=== PATIENT | female | born 1985 | race Caucasian/White ===

== ENCOUNTER 2019-04-08 20:06 | Emergency (ER) | payer OTHER ==
[~2019-04-08] VITALS: Ht 154.9 cm; Wt 68.0 kg
[2019-04-08] MEDS ORDERED: FORTAMET1000 MG (20:23)
[2019-04-08] MEDS ORDERED: SYNTHROID50 MCG (20:25)
[2019-04-08] MEDS ORDERED: CLONAZEPAM1 M1 (20:25)
[2019-04-08] MEDS ORDERED: PRENA1 CHEW TA1.4 MG (20:25)
[2019-04-08] MEDS ORDERED: PROZAC20 MG (20:25)
== END 2019-04-08 23:18 | disposition home or self-care (01) ==
LOC: ER 20:06
DX: O20.8 Other hemorrhage in early pregnancy (principal)

== ENCOUNTER 2019-08-18 10:08 | Emergency (ER) | payer OTHER ==
[~2019-08-18] VITALS: Ht 154.9 cm; Wt 69.9 kg
[~2019-08-18 10:08] MED LIST: CLONAZEPAM1 M1; FORTAMET1000 MG; PRENA1 CHEW TA1.4 MG; PROZAC20 MG; SYNTHROID50 MCG
== END 2019-08-18 19:09 | disposition home or self-care (01) ==
LOC: ER 10:08
DX: O90.89 Other complications of the puerperium, not elsewhere classified (principal)

== ENCOUNTER 2019-09-20 11:47 | Emergency (ER) | payer OTHER ==
[~2019-09-20] VITALS: Ht 154.9 cm; Wt 59.9 kg
[2019-09-20] MEDS ORDERED: DOXYCYCLINE HY100 M2 PO (16:30)
[2019-09-20] MEDS ORDERED: CLINDAMYCIN HC300 MG PO (16:30)
[2019-09-20] MEDS ORDERED: INTESTINEX680 M1 PO (16:30)
== END 2019-09-20 16:46 | disposition home or self-care (01) ==
LOC: ER 11:47
DX: L03.115 Cellulitis of right lower limb (principal)

== ENCOUNTER 2019-09-28 12:06 | Emergency (ER) | payer OTHER ==
[~2019-09-28] VITALS: Ht 154.9 cm; Wt 0.5 kg
[~2019-09-28 12:06] MED LIST changes: +CLINDAMYCIN HC300 MG PO; +DOXYCYCLINE HY100 M2 PO; +INTESTINEX680 M1 PO
== END 2019-09-28 19:40 | disposition home or self-care (01) ==
LOC: ER 12:06
DX: R60.0 Localized edema (principal); L52 Erythema nodosum; Z20.828 Contact with and (suspected) exposure to other viral communicable diseases

== ENCOUNTER 2020-10-21 10:34 | Emergency (ER) | payer OTHER ==
[~2020-10-21] VITALS: Ht 154.9 cm; Wt 67.1 kg
[2020-10-21] MEDS ORDERED: PRENATAL + DHA1 EAC1 (10:52)
[2020-10-21] MEDS ORDERED: SYNTHROID75 MCG PO (14:06)
== END 2020-10-21 14:27 ==
LOC: ER 10:34
DX: O20.0 Threatened abortion (principal); Z3A.01 Less than 8 weeks gestation of pregnancy; O36.80X0 Pregnancy with inconclusive fetal viability, not applicable or unspecified; O26.891 Other specified pregnancy related conditions, first trimester; O26.851 Spotting complicating pregnancy, first trimester; O24.311 Unspecified pre-existing diabetes mellitus in pregnancy, first trimester; Z79.4 Long term (current) use of insulin

== ENCOUNTER 2021-03-03 11:21 | Emergency (ER) | payer OTHER ==
[~2021-03-03] VITALS: Ht 154.9 cm; Wt 68.0 kg
[~2021-03-03 11:21] MED LIST changes: +PRENATAL + DHA1 EAC1; +SYNTHROID75 MCG PO
[2021-03-03] MEDS ORDERED: FOLIC ACID0.8 M1 (11:48)
[2021-03-03] MEDS ORDERED: ENDOMETRIN100 MG (11:49)
[2021-03-03] MEDS ORDERED: BUDESONIDE0.5 MG/2 M IH (15:50)
[2021-03-03] MEDS ORDERED: IPRAT-ALBUT 0.5-3 ML IH (15:50)
[2021-03-03] MEDS ORDERED: MUCINEX DM ER1 EAC1 PO (15:50)
== END 2021-03-03 16:36 ==
LOC: ER 11:21
DX: O99.512 Diseases of the respiratory system complicating pregnancy, second trimester (principal); Z3A.26 26 weeks gestation of pregnancy; J06.9 Acute upper respiratory infection, unspecified; R10.2 Pelvic and perineal pain; B34.8 Other viral infections of unspecified site; Z88.0 Allergy status to penicillin; Z88.6 Allergy status to analgesic agent

== ENCOUNTER 2022-05-04 19:00 | Emergency (ER) | payer OTHER ==
[~2022-05-04] VITALS: Ht 154.9 cm; Wt 63.5 kg
[~2022-05-04 19:00] MED LIST changes: +BUDESONIDE0.5 MG/2 M IH; +ENDOMETRIN100 MG; +FOLIC ACID0.8 M1; +IPRAT-ALBUT 0.5-3 ML IH; +MUCINEX DM ER1 EAC1 PO
[2022-05-05] MEDS ORDERED: ONDANSETRON ODT4 MG PO (03:22)
[2022-05-05] MEDS ORDERED: CIPRO500 MG PO (03:22)
== END 2022-05-05 03:26 ==
LOC: ER 19:00
DX: N39.0 Urinary tract infection, site not specified (principal); E11.9 Type 2 diabetes mellitus without complications; Z79.84 Long term (current) use of oral hypoglycemic drugs; I10 Essential (primary) hypertension; Z88.6 Allergy status to analgesic agent; Z88.0 Allergy status to penicillin; Z88.2 Allergy status to sulfonamides

== ENCOUNTER 2022-06-15 12:09 | Emergency (ER) | payer OTHER ==
[~2022-06-15] VITALS: Ht 154.9 cm; Wt 60.8 kg
[~2022-06-15 12:09] MED LIST changes: +CIPRO500 MG PO; +ONDANSETRON ODT4 MG PO
== END 2022-06-15 18:22 | disposition home or self-care (01) ==
LOC: ER 12:09
DX: A08.8 Other specified intestinal infections (principal); R00.2 Palpitations; R07.89 Other chest pain; Z88.0 Allergy status to penicillin; Z88.2 Allergy status to sulfonamides; Z88.6 Allergy status to analgesic agent; Z91.018 Allergy to other foods

== ENCOUNTER 2022-10-11 09:29 | Emergency (ER) | payer OTHER ==
[~2022-10-11] VITALS: Ht 154.9 cm; Wt 63.5 kg
== END 2022-10-11 12:27 | disposition home or self-care (01) ==
LOC: ER 09:29
PROVIDERS: Emergency Medicine
DX: B34.9 Viral infection, unspecified (principal); Z20.822 Contact with and (suspected) exposure to COVID-19; Z88.0 Allergy status to penicillin; Z88.2 Allergy status to sulfonamides; Z91.048 Other nonmedicinal substance allergy status

== ENCOUNTER 2022-12-25 08:10 | Emergency (ER) | payer OTHER ==
[~2022-12-25] VITALS: Ht 154.9 cm; Wt 67.1 kg
[2022-12-25] MEDS ORDERED: FOLIC ACID20 MG (08:20)
[2022-12-25] MEDS ORDERED: PRENATABS FA T1 EACH (08:21)
[2022-12-25 11:05] LABS: URINE APPEARANCE Clear; URINE BILIRRUBIN Negative (NEGATIVE); URINE BLOOD Negative; URINE COLOR Yellow; URINE GLUCOSE Negative (NEGATIVE); URINE LEUKOCYTE Negative; URINE NITRATE Negative; URINE PROTEIN Negative (NEGATIVE); URINE UROBILINOGEN 0.2 E.U./dl
[2022-12-25 11:06] LABS: URINE BACTERIA 294.7 uL (0.0-1933); URINE EPITHELIAL CELLS 19.4 uL (0.0-38.8); URINE RBC 7.1 uL (0.0-20.8); URINE WBC 7.5 uL (0.0-23.2)
[2022-12-25 11:11] LABS: HEMATOCRIT 32.9 % (36.0-45.00); HEMOGLOBIN 10.9 g/dL (12.0-15.00); MEAN CELL VOLUME 89.1 fL (80.00-100.00); MEAN CORPUSCULAR HEMOGLOBIN 29.5 pg (27.00-32.0); MEAN CORPUSCULAR HGB CONC 33.1 g/dl (32.0-36.0); PLATELET COUNT 327 K/uL (150-450); RED BLOOD COUNT 3.69 M/uL (4.00-6.00)
[2022-12-25 11:45] LABS: CALCIUM 9.4 mg/dL (8.5-10.1); CREATININE SERUM 0.52 mg/dL (0.55-1.02); GFR 131.97; POTASSIUM 3.79 mEq/L (3.5-5.1)
== END 2022-12-25 13:21 ==
LOC: ER 08:10
PROVIDERS: General Practice
DX: B34.8 Other viral infections of unspecified site (principal); Z20.822 Contact with and (suspected) exposure to COVID-19

== ENCOUNTER 2023-01-16 01:23 | Emergency (ER) | payer OTHER ==
[~2023-01-16] VITALS: Ht 154.9 cm; Wt 67.1 kg
[~2023-01-16 01:23] MED LIST changes: +FOLIC ACID20 MG; +PRENATABS FA T1 EACH
[2023-01-16] MEDS ORDERED: CLEOCIN HCL300 MG PO (03:08)
[2023-01-16] MEDS ORDERED: DOLOGEN CAPLET1 EACH PO (03:08)
== END 2023-01-16 03:24 | disposition home or self-care (01) ==
LOC: ER 01:23
DX: K08.89 Other specified disorders of teeth and supporting structures (principal); Z3A.15 15 weeks gestation of pregnancy; Z88.0 Allergy status to penicillin; Z88.2 Allergy status to sulfonamides; Z88.6 Allergy status to analgesic agent; Z91.018 Allergy to other foods

== ENCOUNTER 2023-01-27 15:50 | Emergency (ER) | payer OTHER ==
[~2023-01-27] VITALS: Ht 154.9 cm; Wt 67.1 kg
[~2023-01-27 15:50] MED LIST changes: +CLEOCIN HCL300 MG PO; +DOLOGEN CAPLET1 EACH PO
[2023-01-27 17:36] LABS: HEMATOCRIT 30.6 % (36.0-45.00); HEMOGLOBIN 10.3 g/dL (12.0-15.00); MEAN CELL VOLUME 90.5 fL (80.00-100.00); MEAN CORPUSCULAR HEMOGLOBIN 30.4 pg (27.00-32.0); MEAN CORPUSCULAR HGB CONC 33.6 g/dl (32.0-36.0); PLATELET COUNT 307 K/uL (150-450); RED BLOOD COUNT 3.38 M/uL (4.00-6.00); RED CELL DISTRIBUTION WIDTH 14.9 % (11.5-14.5)
[2023-01-27 17:37] LABS: PH,URINE 7.5 (5.0-8.0); URINE APPEARANCE Clear; URINE BILIRRUBIN Negative (NEGATIVE); URINE BLOOD Negative; URINE COLOR Yellow; URINE GLUCOSE Negative (NEGATIVE); URINE LEUKOCYTE Moderate; URINE NITRATE Negative; URINE PROTEIN Negative (NEGATIVE); URINE UROBILINOGEN 0.2 E.U./dl
[2023-01-27 17:41] LABS: URINE BACTERIA 1202.9 uL (0.0-1933); URINE EPITHELIAL CELLS 18.3 uL (0.0-38.8); URINE RBC 2.4 uL (0.0-20.8)
[2023-01-27] MEDS ORDERED: MACRODANTIN100 M1 PO (17:57)
[2023-01-27] MEDS ORDERED: ONDANSETRON ODT8 MG PO (17:57)
[2023-01-27] MEDS ORDERED: FLORAVANCE CAP1 EACH PO (17:57)
== END 2023-01-27 18:21 | disposition home or self-care (01) ==
LOC: ER 15:50
PROVIDERS: General Practice
DX: O23.42 Unspecified infection of urinary tract in pregnancy, second trimester (principal); N39.0 Urinary tract infection, site not specified; Z3A.16 16 weeks gestation of pregnancy; Z88.6 Allergy status to analgesic agent; Z88.0 Allergy status to penicillin; Z88.2 Allergy status to sulfonamides; Z91.018 Allergy to other foods

== ENCOUNTER 2023-02-27 10:20 | Emergency (ER) | payer OTHER ==
[~2023-02-27] VITALS: Ht 154.9 cm; Wt 68.0 kg
[~2023-02-27 10:20] MED LIST changes: +FLORAVANCE CAP1 EACH PO; +MACRODANTIN100 M1 PO; +ONDANSETRON ODT8 MG PO
== END 2023-02-27 13:08 | disposition home or self-care (01) ==
LOC: ER 10:21
DX: O99.891 Other specified diseases and conditions complicating pregnancy (principal); Z3A.21 21 weeks gestation of pregnancy; Z88.2 Allergy status to sulfonamides; Z88.0 Allergy status to penicillin; Z91.012 Allergy to eggs; J00 Acute nasopharyngitis [common cold]; Z88.6 Allergy status to analgesic agent

== ENCOUNTER → 2023-03-13 | Emergency (ER) | payer OTHER ==
[~2023-03-13] VITALS: Ht 154.9 cm; Wt 68.9 kg
[~2023-03-13] MED LIST changes: +ACETAMINOPHEN 500 MG GEL..CAP PO STA
[2023-03-13 13:34] LABS: HEMATOCRIT 28.9 % (36.0-45.00); HEMOGLOBIN 9.7 g/dL (12.0-15.00); MEAN CELL VOLUME 89.7 fL (80.00-100.00); MEAN CORPUSCULAR HEMOGLOBIN 30.1 pg (27.00-32.0); MEAN CORPUSCULAR HGB CONC 33.6 g/dl (32.0-36.0); PLATELET COUNT 271 K/uL (150-450); RED BLOOD COUNT 3.22 M/uL (4.00-6.00); RED CELL DISTRIBUTION WIDTH 14.7 % (11.5-14.5)
[2023-03-13 13:44] LABS: ERYTHROCYTE SEDIMENTATION RATE 27 mm/hr
[2023-03-13 13:53] LABS: URINE APPEARANCE Clear; URINE BILIRRUBIN Negative (NEGATIVE); URINE BLOOD Negative; URINE COLOR Yellow; URINE GLUCOSE Negative (NEGATIVE); URINE LEUKOCYTE Small; URINE NITRATE Negative; URINE PROTEIN Negative (NEGATIVE); URINE UROBILINOGEN 0.2 E.U./dl
[2023-03-13 14:03] LABS: URINE BACTERIA 7.5 uL (0.0-1933); URINE WBC 44.7 uL (0.0-23.2)
[2023-03-13 14:07] LABS: CALCIUM 8.6 mg/dL (8.5-10.1); CREATININE SERUM 0.49 mg/dL (0.55-1.02); GFR 141.34; POTASSIUM 3.68 mEq/L (3.5-5.1)
[2023-03-13 14:08] LABS: URINE RBC 0.5 uL (0.0-20.8)
== END | disposition home or self-care (01) ==
LOC: ER 10:26
PROVIDERS: General Practice
DX: O98.512 Other viral diseases complicating pregnancy, second trimester (principal); B34.9 Viral infection, unspecified; Z3A.21 21 weeks gestation of pregnancy; R42 Dizziness and giddiness; Z88.0 Allergy status to penicillin; Z88.2 Allergy status to sulfonamides; Z91.018 Allergy to other foods; Z20.822 Contact with and (suspected) exposure to COVID-19

== ENCOUNTER 2023-03-27 18:18 | Emergency (ER) | payer OTHER ==
[~2023-03-27] VITALS: Ht 154.9 cm; Wt 71.7 kg
[~2023-03-27 18:18] MED LIST changes: -ACETAMINOPHEN 500 MG GEL..CAP PO STA
[2023-03-27] MEDS ORDERED: GLUMETZA1000 MG PO (19:02)
[2023-03-27] MEDS ORDERED: PROZAC40 MG PO (19:02)
[2023-03-27] MEDS ORDERED: SYNTHROID50 MCG PO (19:03)
[2023-03-27] MEDS ORDERED: CLINDAMYCIN PHOSPHATE 150 MG/ML (600mg) IM STA (20:53)
[2023-03-27] MEDS ORDERED: ACETAMINOPHEN 500 MG GEL..CAP PO STA (20:54)
== END 2023-03-27 21:18 | disposition home or self-care (01) ==
LOC: ER 18:18
DX: K03.81 Cracked tooth (principal); K08.89 Other specified disorders of teeth and supporting structures; Z88.0 Allergy status to penicillin; Z88.2 Allergy status to sulfonamides; Z88.8 Allergy status to other drugs, medicaments and biological substances; Z91.018 Allergy to other foods

== ENCOUNTER 2023-04-05 21:52 | Outpatient (CLI) | payer OTHER ==
[~2023-04-05] VITALS: Ht 154.9 cm; Wt 68.9 kg
[~2023-04-05 21:52] MED LIST changes: +GLUMETZA1000 MG PO; +PROZAC40 MG PO; +SYNTHROID50 MCG PO
[2023-04-05 23:31] LABS: PH,URINE 6.5 (5.0-8.0); URINE APPEARANCE Clear; URINE BILIRRUBIN Negative (NEGATIVE); URINE BLOOD Negative; URINE COLOR Yellow; URINE GLUCOSE Negative (NEGATIVE); URINE LEUKOCYTE Moderate; URINE NITRATE Negative; URINE PROTEIN Negative (NEGATIVE); URINE UROBILINOGEN 0.2 E.U./dl
[2023-04-05 23:34] LABS: URINE BACTERIA 799.9 uL (0.0-1933); URINE EPITHELIAL CELLS 15.2 uL (0.0-38.8); URINE WBC 31.8 uL (0.0-23.2)
[2023-04-05 23:37] LABS: HEMATOCRIT 25.7 % (36.0-45.00); MEAN CELL VOLUME 90.7 fL (80.00-100.00); MEAN CORPUSCULAR HGB CONC 33.6 g/dl (32.0-36.0); PLATELET COUNT 270 K/uL (150-450); RED BLOOD COUNT 2.83 M/uL (4.00-6.00); RED CELL DISTRIBUTION WIDTH 15.3 % (11.5-14.5)
[2023-04-05 23:39] LABS: MEAN CORPUSCULAR HEMOGLOBIN 30.3 pg (27.00-32.0)
[2023-04-05 23:40] LABS: HEMOGLOBIN 8.6 g/dL (12.0-15.00); URINE RBC 0.4 uL (0.0-20.8)
[2023-04-05] MEDS ORDERED: ACETAMINOPHEN 500 MG GEL..CAP PO ONE (23:45)
[2023-04-05] MEDS ORDERED: PROMETHAZINE HCL 25 MG/ML AMPUL IV ONE (23:45)
[2023-04-05 23:57] LABS: ALBUMIN 2.7 gm/dL (3.4-5.0); BILIRUBIN TOTAL 0.22 mg/dL (0.3-1.2); CALCIUM 8.8 mg/dL (8.5-10.1); GFR 152.03; GLOBULINA 3.4 G/DL (2.4-3.5); POTASSIUM 4.14 mEq/L (3.5-5.1); TOTAL PROTEIN 6.1 gm/dL (6.4-8.2)
[2023-04-06 00:03] LABS: CREATININE SERUM 0.46 mg/dL (0.55-1.02)
[2023-04-06] MEDS ORDERED: LEVOTHYROXINE SODIUM 50 MCG TABLET PO SCH (06:00)
[2023-04-06] MEDS ORDERED: SOD FERRIC GLUC COMPLX/SUCROSE 125 MG in 0.9 % SODIUM CHLORIDE 100 ML IV SCH (11:37)
[2023-04-06] MEDS ORDERED: SOD FERRIC GLUC COMPLX/SUCROSE 62.5 MG/5 ML AMPUL IV ONE (11:54)
== END 2023-04-06 14:23 | disposition home or self-care (01) ==
LOC: OBS/DEL 21:52
PROVIDERS: ATTEND Obstetrics & Gynecology
DX: O26.852 Spotting complicating pregnancy, second trimester (principal); Z3A.25 25 weeks gestation of pregnancy; D64.9 Anemia, unspecified; O26.849 Uterine size-date discrepancy, unspecified trimester; O60.00 Preterm labor without delivery, unspecified trimester

== ENCOUNTER 2023-04-24 21:24 | Outpatient (CLI) | payer OTHER ==
[~2023-04-24 21:24] MED LIST changes: +CLONAZEPAM2 M1; +CLONAZEPAM2 MG PO; +ENDOMETRIN100 MG IM; +FLONASE16 GM NASAL; +FOLIC ACID0.4 MG; +FOLIC ACID20 MG PO; +FORTAMET1000 MG PO; +GLUMETZA1000 MG; +IRON325 MG IJ; +LEVO-T75 MCG PO; +METFORMIN HCL1000 M2 PO; +OSEL75CA PO; +PRENATAL CAPLE1 EAC1 PO; +PRENATAL VITAM1 EAC4 PO; +PROMETRIUM200 MG PO; +PROZAC20 MG PO; +SYNTHROID75 MCG
[2023-04-24] MEDS ORDERED: RINGERS SOLUTION,LACTATED 1,000 ML IV SCH (21:30)
[2023-04-24 21:46] LABS: HEMATOCRIT 28.3 % (36.0-45.00); HEMOGLOBIN 9.5 g/dL (12.0-15.00); MEAN CELL VOLUME 90.6 fL (80.00-100.00); MEAN CORPUSCULAR HEMOGLOBIN 30.4 pg (27.00-32.0); MEAN CORPUSCULAR HGB CONC 33.6 g/dl (32.0-36.0); PH,URINE 7.5 (5.0-8.0); PLATELET COUNT 265 K/uL (150-450); RED BLOOD COUNT 3.12 M/uL (4.00-6.00); RED CELL DISTRIBUTION WIDTH 17.5 % (11.5-14.5); URINE APPEARANCE Cloudy; URINE BILIRRUBIN Negative (NEGATIVE); URINE BLOOD Small; URINE COLOR Dark Yellow; URINE GLUCOSE Negative (NEGATIVE); URINE LEUKOCYTE Large; URINE NITRATE Negative; URINE PROTEIN Negative (NEGATIVE)
[2023-04-24 21:49] LABS: URINE BACTERIA 1048.1 uL (0.0-1933); URINE EPITHELIAL CELLS 7.8 uL (0.0-38.8); URINE RBC 72.2 uL (0.0-20.8); URINE WBC 2342.7 uL (0.0-23.2)
[2023-04-24] MEDS ORDERED: METFORMIN HCL1000 M2 PO (22:24)
[2023-04-24] MEDS ORDERED: DIPHENHYDRAMINE HCL 50 MG/ML VIAL 1ML IV PRN (23:15)
[2023-04-25] MEDS ORDERED: CEFAZOLIN SODIUM 1,000 MG VIAL IV SCH
[2023-04-25] MEDS ORDERED: LEVOTHYROXINE SODIUM 50 MCG TABLET PO SCH (06:00)
[2023-04-25] MEDS ORDERED: PATIENTS OWN MEDICATION (MEDICAMENTO EN PISO) PO SCH (09:00)
[2023-04-25] MEDS ORDERED: SOD FERRIC GLUC COMPLX/SUCROSE 125 MG in 0.9 % SODIUM CHLORIDE 100 ML IV SCH (11:14)
[2023-04-25] MEDS ORDERED: SOD FERRIC GLUC COMPLX/SUCROSE 62.5 MG/5 ML AMPUL IV ONE (15:13)
== END 2023-04-25 18:20 | disposition home or self-care (01) ==
LOC: OBS/DEL 21:24
PROVIDERS: Obstetrics & Gynecology; ATTEND Obstetrics & Gynecology
DX: O23.43 Unspecified infection of urinary tract in pregnancy, third trimester (principal); N39.0 Urinary tract infection, site not specified; Z3A.29 29 weeks gestation of pregnancy; D64.9 Anemia, unspecified; O26.849 Uterine size-date discrepancy, unspecified trimester; O36.8199 Decreased fetal movements, unspecified trimester, other fetus; O60.00 Preterm labor without delivery, unspecified trimester

== ENCOUNTER 2023-05-13 14:40 | Outpatient (CLI) | payer OTHER | END 2023-05-13 14:41 | disposition home or self-care (01) | LOC: PRENATAL 14:40 | PROVIDERS: ATTEND Obstetrics & Gynecology Maternal & Fetal Medicine | DX: O26.849 Uterine size-date discrepancy, unspecified trimester (principal); O36.8199 Decreased fetal movements, unspecified trimester, other fetus; O09.529 Supervision of elderly multigravida, unspecified trimester; O34.219 Maternal care for unspecified type scar from previous cesarean delivery; O24.319 Unspecified pre-existing diabetes mellitus in pregnancy, unspecified trimester; O99.019 Anemia complicating pregnancy, unspecified trimester; Z3A.31 31 weeks gestation of pregnancy ==

== ENCOUNTER 2023-08-09 19:19 | Emergency (ER) | payer OTHER ==
[~2023-08-09] VITALS: Ht 154.9 cm; Wt 63.5 kg
[~2023-08-09 19:19] MED LIST changes: +CLONAZEPAM2 MG; +VITATRUE COMBO1 EACH
[2023-08-09] MEDS ORDERED: LEVOXYL50 MCG PO (19:35)
[2023-08-09] MEDS ORDERED: DIPHENHYDRAMINE HCL 50 MG/ML VIAL 1ML IV STA (20:10)
[2023-08-09] MEDS ORDERED: MOMETASONE FURO15 G2 TOP (20:17)
[2023-08-09] MEDS ORDERED: XYZAL5 MG PO (20:17)
== END 2023-08-09 21:19 | disposition home or self-care (01) ==
LOC: ER 19:21
DX: R21 Rash and other nonspecific skin eruption (principal); M32.9 Systemic lupus erythematosus, unspecified; Z88.0 Allergy status to penicillin; Z91.014 Allergy to mammalian meats; Z91.018 Allergy to other foods

== ENCOUNTER 2023-08-11 19:29 | Emergency (ER) | payer OTHER ==
[~2023-08-11] VITALS: Ht 154.9 cm; Wt 63.5 kg
[~2023-08-11 19:29] MED LIST changes: +LEVOXYL50 MCG PO; +MOMETASONE FURO15 G2 TOP; +XYZAL5 MG PO
[2023-08-11] MEDS ORDERED: TRAMADOL HCL 50 MG TABLET PO STA (21:05)
== END 2023-08-11 23:44 | disposition home or self-care (01) ==
LOC: ER 19:30
DX: M54.2 Cervicalgia (principal); M25.512 Pain in left shoulder; R51.9 Headache, unspecified; W19.XXXA Unspecified fall, initial encounter; Z88.0 Allergy status to penicillin; Z91.018 Allergy to other foods

== ENCOUNTER 2023-08-17 14:31 | Emergency (ER) | payer OTHER ==
[~2023-08-17] VITALS: Ht 154.9 cm; Wt 63.5 kg
[2023-08-17] MEDS ORDERED: DIPHENHYDRAMINE HCL 50 MG/ML VIAL 1ML IM STA (17:04)
[2023-08-17] MEDS ORDERED: METHYLPREDNISOLONE SOD SUCC 125 MG VIAL IM STA (17:05)
[2023-08-17] MEDS ORDERED: METHYLPREDNISOLONE SOD SUCC 125 MG VIAL IV STA (17:05)
[2023-08-17] MEDS ORDERED: DIPHENHYDRAMINE HCL 50 MG/ML VIAL 1ML IV STA (17:05)
[2023-08-17] MEDS ORDERED: EPINEPHRINE HCL/PF 1 MG/ML AMPUL SUBCUTANEO STA (17:06)
[2023-08-17] MEDS ORDERED: FAMOtidine 10 MG/ML (4ML VIAL) IV PUSH STA (17:06)
== END 2023-08-17 18:37 | disposition home or self-care (01) ==
LOC: ER 14:32
DX: L50.9 Urticaria, unspecified (principal); Z88.0 Allergy status to penicillin; Z91.014 Allergy to mammalian meats; Z91.018 Allergy to other foods

== ENCOUNTER 2023-08-27 16:29 | Emergency (ER) | payer OTHER ==
[~2023-08-27] VITALS: Ht 154.9 cm; Wt 63.5 kg
[2023-08-27 18:48] LABS: HEMATOCRIT 37.5 % (36.0-45.00); HEMOGLOBIN 12.5 g/dL (12.0-15.00); MEAN CELL VOLUME 91.1 fL (80.00-100.00); MEAN CORPUSCULAR HEMOGLOBIN 30.2 pg (27.00-32.0); MEAN CORPUSCULAR HGB CONC 33.2 g/dl (32.0-36.0); PLATELET COUNT 384 K/uL (150-450); RED BLOOD COUNT 4.12 M/uL (4.00-6.00); RED CELL DISTRIBUTION WIDTH 15.4 % (11.5-14.5)
[2023-08-27 19:34] LABS: ALBUMIN 3.6 gm/dL (3.4-5.0); BILIRUBIN TOTAL 0.39 mg/dL (0.3-1.2); CREATININE SERUM 0.67 mg/dL (0.55-1.02); GFR 97.99; GLOBULINA 3.7 G/DL (2.4-3.5); POTASSIUM 4.35 mEq/L (3.5-5.1); TOTAL PROTEIN 7.3 gm/dL (6.4-8.2)
== END 2023-08-27 21:28 | disposition home or self-care (01) ==
LOC: ER 16:29
PROVIDERS: Emergency Medicine
DX: R07.9 Chest pain, unspecified (principal); L93.2 Other local lupus erythematosus; E03.8 Other specified hypothyroidism; Z88.2 Allergy status to sulfonamides; Z88.0 Allergy status to penicillin; Z91.011 Allergy to milk products; Z91.012 Allergy to eggs; Z88.6 Allergy status to analgesic agent; Z91.018 Allergy to other foods; E11.9 Type 2 diabetes mellitus without complications; Z79.84 Long term (current) use of oral hypoglycemic drugs

== ENCOUNTER 2023-09-24 03:00 | Emergency (ER) | payer OTHER ==
[~2023-09-24] VITALS: Ht 154.9 cm; Wt 63.5 kg
[2023-09-24] MEDS ORDERED: CIPROFLOXACIN IN 5 % DEXTROSE 400 MG/200 ML PIGGYBAG IV STA (03:37)
[2023-09-24] MEDS ORDERED: ACETAMINOPHEN WITH CODEINE 1 UDTAB TABLET PO STA (03:38)
[2023-09-24] MEDS ORDERED: CIPROFLOXACIN IN 5 % DEXTROSE 400 MG/200 ML PIGGYBAG IV ONE (03:46)
[2023-09-24 05:08] LABS: PH,URINE 6.5 (5.0-8.0); URINE APPEARANCE Cloudy; URINE BILIRRUBIN Negative (NEGATIVE); URINE BLOOD Moderate; URINE COLOR Yellow; URINE GLUCOSE Negative (NEGATIVE); URINE KETONE Negative (NEGATIVE); URINE LEUKOCYTE Large; URINE NITRATE Negative; URINE PROTEIN Negative (NEGATIVE); URINE UROBILINOGEN 0.2 E.U./dl
[2023-09-24 05:12] LABS: URINE BACTERIA 172.5 uL (0.0-1933); URINE EPITHELIAL CELLS 2.3 uL (0.0-38.8); URINE RBC 4.4 uL (0.0-20.8); URINE WBC 857.7 uL (0.0-23.2)
[2023-09-24 06:17] LABS: HEMATOCRIT 35.4 % (36.0-45.00); MEAN CELL VOLUME 90.9 fL (80.00-100.00); MEAN CORPUSCULAR HEMOGLOBIN 30.8 pg (27.00-32.0); MEAN CORPUSCULAR HGB CONC 33.9 g/dl (32.0-36.0); PLATELET COUNT 416 K/uL (150-450); RED CELL DISTRIBUTION WIDTH 15.7 % (11.5-14.5)
== END 2023-09-24 06:10 | disposition home or self-care (01) ==
LOC: ER 03:01
DX: N30.90 Cystitis, unspecified without hematuria (principal); N39.9 Disorder of urinary system, unspecified; Z88.0 Allergy status to penicillin; Z91.018 Allergy to other foods

== ENCOUNTER 2023-10-02 09:57 | Emergency (ER) | payer OTHER ==
[~2023-10-02] VITALS: Ht 154.9 cm; Wt 63.5 kg
[2023-10-02] MEDS ORDERED: DIPHENHYDRAMINE HCL 50 MG/ML VIAL 1ML IM ONE (10:45)
[2023-10-02] MEDS ORDERED: DIPHENHYDRAMINE HCL 50 MG/ML VIAL 1ML ONE (10:46)
[2023-10-02 11:39] LABS: HEMATOCRIT 37.8 % (36.0-45.00); HEMOGLOBIN 12.7 g/dL (12.0-15.00); MEAN CELL VOLUME 91.8 fL (80.00-100.00); MEAN CORPUSCULAR HEMOGLOBIN 30.7 pg (27.00-32.0); MEAN CORPUSCULAR HGB CONC 33.5 g/dl (32.0-36.0); PLATELET COUNT 424 K/uL (150-450); RED BLOOD COUNT 4.12 M/uL (4.00-6.00); RED CELL DISTRIBUTION WIDTH 15.4 % (11.5-14.5)
== END 2023-10-02 12:56 | disposition home or self-care (01) ==
LOC: ER 09:58
PROVIDERS: General Practice
DX: J06.9 Acute upper respiratory infection, unspecified (principal); Z88.0 Allergy status to penicillin; Z91.011 Allergy to milk products; Z88.2 Allergy status to sulfonamides; Z88.6 Allergy status to analgesic agent; Z91.013 Allergy to seafood; Z20.822 Contact with and (suspected) exposure to COVID-19

== ENCOUNTER 2023-10-09 10:47 | Emergency (ER) | payer OTHER ==
[~2023-10-09] VITALS: Ht 152.4 cm; Wt 65.8 kg
[2023-10-09] MEDS ORDERED: 0.9 % SODIUM CHLORIDE 1,000 ML IV STA (13:05)
[2023-10-09 13:57] LABS: URINE APPEARANCE Clear; URINE BILIRRUBIN Negative (NEGATIVE); URINE BLOOD Negative; URINE COLOR Yellow; URINE GLUCOSE Negative (NEGATIVE); URINE KETONE Negative (NEGATIVE); URINE LEUKOCYTE Negative; URINE NITRATE Negative; URINE PROTEIN Negative (NEGATIVE); URINE UROBILINOGEN 0.2 E.U./dl
[2023-10-09 14:00] LABS: URINE BACTERIA 1548.3 uL (0.0-1933); URINE EPITHELIAL CELLS 24.1 uL (0.0-38.8); URINE RBC 23.2 uL (0.0-20.8); URINE WBC 2.6 uL (0.0-23.2)
[2023-10-09 14:27] LABS: HEMATOCRIT 37.4 % (36.0-45.00); HEMOGLOBIN 12.6 g/dL (12.0-15.00); MEAN CELL VOLUME 91.3 fL (80.00-100.00); MEAN CORPUSCULAR HEMOGLOBIN 30.8 pg (27.00-32.0); MEAN CORPUSCULAR HGB CONC 33.7 g/dl (32.0-36.0); PLATELET COUNT 439 K/uL (150-450); RED CELL DISTRIBUTION WIDTH 15.2 % (11.5-14.5)
[2023-10-09 14:58] LABS: ANION GAP 14 (10.0-20.0); BLOOD UREA NITROGEN 6 mg/dL (7-18); BUN CREA RATIO 10 (7.0-25.0); CALCIUM 9.6 mg/dL (8.5-10.1); CARBON DIOXIDE 27 mEq/L (21-32); CHLORIDE 104 mmol/L (98-107); CREATININE SERUM 0.63 mg/dL (0.55-1.02); GLUCOSE FASTING 68 mg/dL (65-100); OSMOLALITY SERUM 277 MOSM/KG (275-295); POTASSIUM 3.67 mEq/L (3.5-5.1); SODIUM 141 mmol/L (136-145)
[2023-10-09 14:59] LABS: HCG QUANTITATIVE < 1 mUI/mL (1-3)
== END 2023-10-09 17:02 | disposition home or self-care (01) ==
LOC: ER 10:49
PROVIDERS: General Practice
DX: R50.9 Fever, unspecified (principal); Z91.012 Allergy to eggs; Z88.0 Allergy status to penicillin; Z91.011 Allergy to milk products; Z88.2 Allergy status to sulfonamides; Z88.6 Allergy status to analgesic agent; Z91.013 Allergy to seafood; Z91.018 Allergy to other foods; E03.8 Other specified hypothyroidism; M06.8A Other specified rheumatoid arthritis, other specified site; I10 Essential (primary) hypertension; Z79.84 Long term (current) use of oral hypoglycemic drugs; E11.9 Type 2 diabetes mellitus without complications

== ENCOUNTER 2023-11-01 14:30 | Emergency (ER) | payer OTHER ==
[~2023-11-01] VITALS: Ht 154.9 cm; Wt 66.7 kg
[2023-11-01 16:43] LABS: HEMATOCRIT 35.4 % (36.0-45.00); HEMOGLOBIN 11.9 g/dL (12.0-15.00); MEAN CELL VOLUME 92.2 fL (80.00-100.00); MEAN CORPUSCULAR HEMOGLOBIN 30.9 pg (27.00-32.0); MEAN CORPUSCULAR HGB CONC 33.5 g/dl (32.0-36.0); PLATELET COUNT 352 K/uL (150-450); RED BLOOD COUNT 3.84 M/uL (4.00-6.00); RED CELL DISTRIBUTION WIDTH 14.2 % (11.5-14.5)
[2023-11-01 16:48] LABS: URINE APPEARANCE Clear; URINE BILIRRUBIN Negative (NEGATIVE); URINE BLOOD Negative; URINE COLOR Yellow; URINE EPITHELIAL CELLS 9.5 uL (0.0-38.8); URINE GLUCOSE Negative (NEGATIVE); URINE KETONE Negative (NEGATIVE); URINE LEUKOCYTE Negative; URINE NITRATE Negative; URINE PROTEIN Negative (NEGATIVE); URINE RBC 2.2 uL (0.0-20.8); URINE UROBILINOGEN 0.2 E.U./dl
[2023-11-01 16:50] LABS: URINE WBC 0.4 uL (0.0-23.2)
[2023-11-01 17:06] LABS: CALCIUM 9.6 mg/dL (8.5-10.1); CREATININE SERUM 0.57 mg/dL (0.55-1.02); GFR 118.08; POTASSIUM 4.54 mEq/L (3.5-5.1)
[2023-11-02] MEDS ORDERED: FAMOTIDINE/PF 20 MG/2 ML VIAL IV PUSH STA (00:24)
[2023-11-02] MEDS ORDERED: ONDANSETRON HCL 2 MG/ML VIAL IV STA (00:24)
[2023-11-02] MEDS ORDERED: 0.9 % SODIUM CHLORIDE 1,000 ML IV ONE (00:30)
[2023-11-02] MEDS ORDERED: DIPHENHYDRAMINE HCL 50 MG/ML VIAL 1ML IV STA (01:07)
[2023-11-02 01:09] LABS: AMYLASE 31 U/L (25-115); LIPASE 33 U/L (13-75)
[2023-11-02] MEDS ORDERED: ZOFRAN8 MG PO (04:36)
[2023-11-02] MEDS ORDERED: PEPCID40 MG PO (04:36)
[2023-11-02] MEDS ORDERED: LEVSIN/SL0.125 MG SL (04:36)
== END 2023-11-02 04:50 ==
LOC: ER 14:31
PROVIDERS: Emergency Medicine; General Practice
DX: R10.13 Epigastric pain (principal); K82.4 Cholesterolosis of gallbladder; Z91.014 Allergy to mammalian meats; Z88.0 Allergy status to penicillin; Z91.018 Allergy to other foods

== ENCOUNTER 2023-11-19 20:56 | Emergency (ER) | payer OTHER ==
[~2023-11-19] VITALS: Ht 154.9 cm; Wt 67.1 kg
[~2023-11-19 20:56] MED LIST changes: +LEVSIN/SL0.125 MG SL; +PEPCID40 MG PO; +ZOFRAN8 MG PO
[2023-11-19] MEDS ORDERED: PANTOPRAZOLE SODIUM 40 MG/VIAL VIAL IV PUSH ONE (22:45)
[2023-11-19] MEDS ORDERED: HYOSCYAMINE SULFATE 0.125 MG TAB.SUBL SL ONE (22:45)
[2023-11-19 23:17] LABS: HEMATOCRIT 33.1 % (36.0-45.00); HEMOGLOBIN 11.1 g/dL (12.0-15.00); MEAN CELL VOLUME 92.2 fL (80.00-100.00); MEAN CORPUSCULAR HEMOGLOBIN 30.9 pg (27.00-32.0); MEAN CORPUSCULAR HGB CONC 33.5 g/dl (32.0-36.0); PLATELET COUNT 329 K/uL (150-450); RED BLOOD COUNT 3.59 M/uL (4.00-6.00); RED CELL DISTRIBUTION WIDTH 13.4 % (11.5-14.5)
[2023-11-19 23:47] LABS: ALBUMIN 3.3 gm/dL (3.4-5.0); ALKALINE PHOSPHATASE 45 U/L (50-136); ALT/SGPT 16 U/L (12-78); AMYLASE 38 U/L (25-115); ANION GAP 12 (10.0-20.0); AST/SGOT 6 U/L (15-37); BILIRUBIN TOTAL 0.13 mg/dL (0.3-1.2); BLOOD UREA NITROGEN 10 mg/dL (7-18); BUN CREA RATIO 14 (7.0-25.0); CALCIUM 9.3 mg/dL (8.5-10.1); CARBON DIOXIDE 27 mEq/L (21-32); CHLORIDE 106 mmol/L (98-107); GFR 93.16; GLOBULINA 3.5 G/DL (2.4-3.5); GLUCOSE FASTING 81 mg/dL (65-100); LIPASE 52 U/L (13-75); OSMOLALITY SERUM 279 MOSM/KG (275-295); POTASSIUM 3.53 mEq/L (3.5-5.1); SODIUM 141 mmol/L (136-145); TOTAL PROTEIN 6.8 gm/dL (6.4-8.2)
[2023-11-20 00:03] LABS: HCG QUANTITATIVE < 1 mUI/mL (1-3)
[2023-11-20] MEDS ORDERED: PEPCID AC20 MG PO (00:33)
[2023-11-20] MEDS ORDERED: CARAFATE1 GM PO (00:33)
== END 2023-11-20 00:47 | disposition home or self-care (01) ==
LOC: ER 20:58
PROVIDERS: General Practice
DX: K29.70 Gastritis, unspecified, without bleeding (principal); R10.9 Unspecified abdominal pain; E11.9 Type 2 diabetes mellitus without complications; Z79.84 Long term (current) use of oral hypoglycemic drugs; Z88.0 Allergy status to penicillin; Z91.018 Allergy to other foods

== ENCOUNTER 2023-11-30 09:46 | Emergency (ER) | payer OTHER ==
[~2023-11-30] VITALS: Ht 154.9 cm; Wt 68.0 kg
[~2023-11-30 09:46] MED LIST changes: +CARAFATE1 GM PO; +PEPCID AC20 MG PO
[2023-11-30 10:04] VITALS: BP 70/50; O2SAT 98
[2023-11-30] MEDS ORDERED: MEPERIDINE HCL/PF 25 MG/ML VIAL IM ONE (10:45)
[2023-11-30] MEDS ORDERED: DIPHENHYDRAMINE HCL 50 MG/ML VIAL 1ML IV ONE (10:45)
[2023-11-30] MEDS ORDERED: 0.9 % SODIUM CHLORIDE 1,000 ML IV ONE (10:45)
[2023-11-30] MEDS ORDERED: FAMOtidine 10 MG/ML (4ML VIAL) IV ONE (10:45)
[2023-11-30] MEDS ORDERED: METHYLPREDNISOLONE SOD SUCC 40 MG VIAL IV ONE (10:45)
[2023-11-30 11:15] LABS: PH,URINE 6.5 (5.0-8.0); URINE APPEARANCE Clear; URINE BILIRRUBIN Negative (NEGATIVE); URINE BLOOD Negative; URINE COLOR Yellow; URINE GLUCOSE Negative (NEGATIVE); URINE KETONE Negative (NEGATIVE); URINE LEUKOCYTE Negative; URINE NITRATE Negative; URINE PROTEIN Negative (NEGATIVE); URINE UROBILINOGEN 0.2 E.U./dl
[2023-11-30 11:20] LABS: URINE BACTERIA 94.3 uL (0.0-1933); URINE EPITHELIAL CELLS 4.1 uL (0.0-38.8)
[2023-11-30 11:29] LABS: HEMATOCRIT 38.7 % (36.0-45.00); HEMOGLOBIN 13.1 g/dL (12.0-15.00); MEAN CELL VOLUME 91.6 fL (80.00-100.00); MEAN CORPUSCULAR HGB CONC 33.9 g/dl (32.0-36.0); PLATELET COUNT 342 K/uL (150-450); RED BLOOD COUNT 4.23 M/uL (4.00-6.00); RED CELL DISTRIBUTION WIDTH 13.6 % (11.5-14.5)
[2023-11-30 11:50] LABS: URINE RBC 1.8 uL (0.0-20.8); URINE WBC 0 uL (0.0-23.2)
[2023-11-30 12:24] LABS: ALBUMIN 3.6 gm/dL (3.4-5.0); ALKALINE PHOSPHATASE 53 U/L (50-136); ALT/SGPT 16 U/L (12-78); AMYLASE 39 U/L (25-115); ANION GAP 6 (10.0-20.0); AST/SGOT 7 U/L (15-37); BILIRUBIN TOTAL 0.27 mg/dL (0.3-1.2); BLOOD UREA NITROGEN 8 mg/dL (7-18); BUN CREA RATIO 15 (7.0-25.0); CALCIUM 9.2 mg/dL (8.5-10.1); CARBON DIOXIDE 31 mEq/L (21-32); CHLORIDE 106 mmol/L (98-107); CREATININE SERUM 0.55 mg/dL (0.55-1.02); GFR 123.05; GLOBULINA 3.8 G/DL (2.4-3.5); GLUCOSE FASTING 78 mg/dL (65-100); LIPASE 33 U/L (13-75); OSMOLALITY SERUM 275 MOSM/KG (275-295); POTASSIUM 3.91 mEq/L (3.5-5.1); SODIUM 139 mmol/L (136-145); TOTAL PROTEIN 7.4 gm/dL (6.4-8.2)
[2023-11-30 13:36] LABS: HCG QUANTITATIVE < 1 mUI/mL (1-3)
[2023-11-30] MEDS ORDERED: ZOFRAN8 MG PO (14:45)
[2023-11-30] MEDS ORDERED: PEPCID AC20 MG PO (14:45)
== END 2023-11-30 15:52 | disposition home or self-care (01) ==
LOC: ER 09:48
PROVIDERS: General Practice
DX: K29.70 Gastritis, unspecified, without bleeding (principal); E11.9 Type 2 diabetes mellitus without complications; Z79.84 Long term (current) use of oral hypoglycemic drugs; E03.9 Hypothyroidism, unspecified; Z87.09 Personal history of other diseases of the respiratory system; Z91.018 Allergy to other foods; Z88.0 Allergy status to penicillin; Z91.014 Allergy to mammalian meats

== ENCOUNTER 2023-12-10 11:02 | Emergency (ER) | payer OTHER ==
[~2023-12-10] VITALS: Ht 154.9 cm; Wt 64.9 kg
[2023-12-10] MEDS ORDERED: MEPERIDINE HCL/PF 25 MG/ML VIAL IM ONE (12:45)
[2023-12-10] MEDS ORDERED: 0.9 % SODIUM CHLORIDE 1,000 ML IV ONE (12:45)
[2023-12-10 13:38] LABS: URINE APPEARANCE Clear; URINE BILIRRUBIN Negative (NEGATIVE); URINE BLOOD Negative; URINE COLOR Yellow; URINE GLUCOSE Negative (NEGATIVE); URINE KETONE Negative (NEGATIVE); URINE LEUKOCYTE Negative; URINE NITRATE Negative; URINE PROTEIN Negative (NEGATIVE); URINE UROBILINOGEN 0.2 E.U./dl
[2023-12-10 13:42] LABS: HEMATOCRIT 38.5 % (36.0-45.00); HEMOGLOBIN 13.3 g/dL (12.0-15.00); MEAN CELL VOLUME 91.1 fL (80.00-100.00); MEAN CORPUSCULAR HEMOGLOBIN 31.3 pg (27.00-32.0); MEAN CORPUSCULAR HGB CONC 34.4 g/dl (32.0-36.0); PLATELET COUNT 339 K/uL (150-450); RED BLOOD COUNT 4.23 M/uL (4.00-6.00); RED CELL DISTRIBUTION WIDTH 13.4 % (11.5-14.5)
[2023-12-10 13:42] LABS: URINE BACTERIA 633.7 uL (0.0-1933); URINE RBC 4.1 uL (0.0-20.8); URINE WBC 3.5 uL (0.0-23.2)
[2023-12-10 14:08] LABS: ALBUMIN 3.7 gm/dL (3.4-5.0); ALKALINE PHOSPHATASE 54 U/L (50-136); ALT/SGPT 18 U/L (12-78); AMYLASE 36 U/L (25-115); ANION GAP 10 (10.0-20.0); AST/SGOT 12 U/L (15-37); BILIRUBIN TOTAL 0.33 mg/dL (0.3-1.2); BLOOD UREA NITROGEN 7 mg/dL (7-18); BUN CREA RATIO 10 (7.0-25.0); CALCIUM 9.3 mg/dL (8.5-10.1); CARBON DIOXIDE 27 mEq/L (21-32); CHLORIDE 107 mmol/L (98-107); CREATININE SERUM 0.73 mg/dL (0.55-1.02); GFR 88.75; GLOBULINA 4.1 G/DL (2.4-3.5); GLUCOSE FASTING 83 mg/dL (65-100); HCG QUANTITATIVE < 1 mUI/mL (1-3); LIPASE 39 U/L (13-75); OSMOLALITY SERUM 277 MOSM/KG (275-295); POTASSIUM 4.22 mEq/L (3.5-5.1); SODIUM 140 mmol/L (136-145); TOTAL PROTEIN 7.8 gm/dL (6.4-8.2)
[2023-12-10] MEDS ORDERED: DOLOGESIC 500-1 EACH PO (17:42)
== END 2023-12-10 17:55 | disposition home or self-care (01) ==
LOC: ER 11:04
PROVIDERS: General Practice
DX: R10.9 Unspecified abdominal pain (principal); E03.8 Other specified hypothyroidism; E11.9 Type 2 diabetes mellitus without complications; Z79.84 Long term (current) use of oral hypoglycemic drugs; Z88.0 Allergy status to penicillin; Z91.018 Allergy to other foods

== ENCOUNTER 2023-12-28 09:38 | Emergency (ER) | payer OTHER ==
[~2023-12-28] VITALS: Ht 154.9 cm; Wt 67.1 kg
[~2023-12-28 09:38] MED LIST changes: +DOLOGESIC 500-1 EACH PO
[2023-12-28 10:06] VITALS: BP 68/50; O2SAT 100
[2023-12-28 13:57] LABS: HEMATOCRIT 41.5 % (36.0-45.00); HEMOGLOBIN 13.7 g/dL (12.0-15.00); MEAN CELL VOLUME 91.9 fL (80.00-100.00); MEAN CORPUSCULAR HEMOGLOBIN 30.4 pg (27.00-32.0); MEAN CORPUSCULAR HGB CONC 33.1 g/dl (32.0-36.0); PLATELET COUNT 366 K/uL (150-450); RED BLOOD COUNT 4.51 M/uL (4.00-6.00); RED CELL DISTRIBUTION WIDTH 13.2 % (11.5-14.5)
[2023-12-28] MEDS ORDERED: MEPERIDINE HCL/PF 25 MG/ML VIAL IV ONE (14:00)
[2023-12-28 14:18] LABS: CALCIUM 9.4 mg/dL (8.5-10.1); CREATININE SERUM 0.68 mg/dL (0.55-1.02); GFR 96.32; POTASSIUM 3.94 mEq/L (3.5-5.1)
[2023-12-28 18:14] LABS: PH,URINE 5.5 (5.0-8.0); URINE APPEARANCE Clear; URINE BILIRRUBIN Negative (NEGATIVE); URINE BLOOD Negative; URINE COLOR Yellow; URINE GLUCOSE Negative (NEGATIVE); URINE KETONE Negative (NEGATIVE); URINE LEUKOCYTE Negative; URINE NITRATE Negative; URINE PROTEIN Negative (NEGATIVE); URINE UROBILINOGEN 0.2 E.U./dl
[2023-12-28 18:18] LABS: URINE BACTERIA 1015.4 uL (0.0-1933); URINE EPITHELIAL CELLS 40.6 uL (0.0-38.8)
== END 2023-12-28 19:05 | disposition home or self-care (01) ==
LOC: ER 09:40
PROVIDERS: General Practice
DX: N93.8 Other specified abnormal uterine and vaginal bleeding (principal); R10.9 Unspecified abdominal pain; Z91.011 Allergy to milk products; Z91.012 Allergy to eggs; Z88.2 Allergy status to sulfonamides; Z88.6 Allergy status to analgesic agent; Z91.018 Allergy to other foods; Z88.0 Allergy status to penicillin; Z91.013 Allergy to seafood; J45.909 Unspecified asthma, uncomplicated; E03.8 Other specified hypothyroidism; M32.8 Other forms of systemic lupus erythematosus; E11.9 Type 2 diabetes mellitus without complications; Z79.84 Long term (current) use of oral hypoglycemic drugs

== ENCOUNTER 2024-01-16 14:41 | Emergency (ER) | payer OTHER ==
[~2024-01-16] VITALS: Ht 154.9 cm; Wt 64.9 kg
[2024-01-16] MEDS ORDERED: PROZAC10 MG PO (15:03)
[2024-01-16] MEDS ORDERED: PEPCID AC20 MG PO (15:03)
[2024-01-16] MEDS ORDERED: GUAIFENESIN/DEXTROMETHORPHAN 10ML BLIST.PACK PO ONE (17:30)
[2024-01-16] MEDS ORDERED: ACETAMINOPHEN 500 MG GEL..CAP PO ONE (17:30)
[2024-01-16 19:40] LABS: HEMATOCRIT 45.5 % (36.0-45.00); HEMOGLOBIN 15.1 g/dL (12.0-15.00); MEAN CELL VOLUME 91.7 fL (80.00-100.00); MEAN CORPUSCULAR HEMOGLOBIN 30.4 pg (27.00-32.0); MEAN CORPUSCULAR HGB CONC 33.1 g/dl (32.0-36.0); PLATELET COUNT 427 K/uL (150-450); RED BLOOD COUNT 4.97 M/uL (4.00-6.00); RED CELL DISTRIBUTION WIDTH 13.8 % (11.5-14.5)
[2024-01-16] MEDS ORDERED: TUSSIN DM LIQU118 ML PO (20:34)
[2024-01-16] MEDS ORDERED: BENZONATATE150 MG PO (20:34)
[2024-01-16] MEDS ORDERED: hydrOXYzine PAMOATE 25 MG CAPSULE PO ONE (20:45)
== END 2024-01-16 20:56 ==
LOC: ER 14:43
PROVIDERS: Nurse Practitioner Family
DX: J06.9 Acute upper respiratory infection, unspecified (principal); Z20.822 Contact with and (suspected) exposure to COVID-19; Z91.012 Allergy to eggs; Z91.011 Allergy to milk products; Z88.2 Allergy status to sulfonamides; Z88.0 Allergy status to penicillin; Z91.013 Allergy to seafood; Z91.018 Allergy to other foods; E11.9 Type 2 diabetes mellitus without complications; Z79.84 Long term (current) use of oral hypoglycemic drugs; E03.8 Other specified hypothyroidism; J45.909 Unspecified asthma, uncomplicated

== ENCOUNTER 2024-01-23 09:27 | Emergency (ER) | payer OTHER ==
[~2024-01-23] VITALS: Ht 154.9 cm; Wt 64.9 kg
[~2024-01-23 09:27] MED LIST changes: +BENZONATATE150 MG PO; +PROZAC10 MG PO; +TUSSIN DM LIQU118 ML PO
[2024-01-23] MEDS ORDERED: CLONAZEPAM1 MG PO (09:31)
[2024-01-23] MEDS ORDERED: ONDANSETRON HCL 2 MG/ML VIAL IV STA (09:57)
[2024-01-23 11:20] LABS: HEMATOCRIT 41.1 % (36.0-45.00); HEMOGLOBIN 13.4 g/dL (12.0-15.00); MEAN CELL VOLUME 91.4 fL (80.00-100.00); MEAN CORPUSCULAR HEMOGLOBIN 29.8 pg (27.00-32.0); MEAN CORPUSCULAR HGB CONC 32.6 g/dl (32.0-36.0); PLATELET COUNT 351 K/uL (150-450); RED BLOOD COUNT 4.49 M/uL (4.00-6.00); RED CELL DISTRIBUTION WIDTH 13.8 % (11.5-14.5)
[2024-01-23 11:53] LABS: CALCIUM 9.1 mg/dL (8.5-10.1); CREATININE SERUM 0.78 mg/dL (0.55-1.02); GFR 82.22; POTASSIUM 4.26 mEq/L (3.5-5.1)
== END 2024-01-23 13:36 | disposition home or self-care (01) ==
LOC: ER 09:27
PROVIDERS: Emergency Medicine
DX: J06.9 Acute upper respiratory infection, unspecified (principal); R11.10 Vomiting, unspecified; Z20.822 Contact with and (suspected) exposure to COVID-19; E03.8 Other specified hypothyroidism; E11.9 Type 2 diabetes mellitus without complications; Z79.84 Long term (current) use of oral hypoglycemic drugs; Z88.0 Allergy status to penicillin; Z91.018 Allergy to other foods

== ENCOUNTER 2024-02-07 10:02 | Emergency (ER) | payer OTHER ==
[~2024-02-07] VITALS: Ht 154.9 cm; Wt 73.5 kg
[~2024-02-07 10:02] MED LIST changes: +CLONAZEPAM1 MG PO
[2024-02-07] MEDS ORDERED: RINGERS SOLUTION,LACTATED 1,000 ML IV STA (10:43)
[2024-02-07] MEDS ORDERED: ONDANSETRON HCL 2 MG/ML VIAL IM ONE (10:45)
[2024-02-07] MEDS ORDERED: FAMOtidine 10 MG/ML (4ML VIAL) IV STA (10:45)
[2024-02-07] MEDS ORDERED: FAMOTIDINE/PF 20 MG/2 ML VIAL ONE (10:49)
[2024-02-07] MEDS ORDERED: ONDANSETRON HCL 2 MG/ML VIAL ONE (10:49)
[2024-02-07 12:13] LABS: HEMATOCRIT 34.4 % (36.0-45.00); HEMOGLOBIN 11.8 g/dL (12.0-15.00); MEAN CELL VOLUME 89.5 fL (80.00-100.00); MEAN CORPUSCULAR HEMOGLOBIN 30.7 pg (27.00-32.0); MEAN CORPUSCULAR HGB CONC 34.3 g/dl (32.0-36.0); PLATELET COUNT 297 K/uL (150-450); RED BLOOD COUNT 3.84 M/uL (4.00-6.00); RED CELL DISTRIBUTION WIDTH 13.9 % (11.5-14.5)
[2024-02-07 12:13] LABS: PH,URINE 7.5 (5.0-8.0); URINE APPEARANCE Clear; URINE BILIRRUBIN Negative (NEGATIVE); URINE BLOOD Negative; URINE COLOR Yellow; URINE GLUCOSE Negative (NEGATIVE); URINE KETONE Negative (NEGATIVE); URINE LEUKOCYTE Negative; URINE NITRATE Negative; URINE PROTEIN Negative (NEGATIVE); URINE UROBILINOGEN 0.2 E.U./dl
[2024-02-07 12:17] LABS: URINE EPITHELIAL CELLS 7.7 uL (0.0-38.8)
[2024-02-07 12:54] LABS: ALBUMIN 3.3 gm/dL (3.4-5.0); ALKALINE PHOSPHATASE 43 U/L (50-136); ALT/SGPT 15 U/L (12-78); ANION GAP 10 (10.0-20.0); AST/SGOT 8 U/L (15-37); BILIRUBIN TOTAL 0.33 mg/dL (0.3-1.2); BILIRUBIN,CONJUGATED < 0.10 mg/dL (0.0-0.2); BILIRUBIN,UNCONJUGATED 0.23 mg/dL (0.0-0.6); BLOOD UREA NITROGEN 6 mg/dL (7-18); BUN CREA RATIO 9 (7.0-25.0); CALCIUM 8.6 mg/dL (8.5-10.1); CARBON DIOXIDE 26 mEq/L (21-32); CHLORIDE 110 mmol/L (98-107); CREATININE SERUM 0.67 mg/dL (0.55-1.02); GFR 97.99; GLUCOSE FASTING 88 mg/dL (65-100); OSMOLALITY SERUM 280 MOSM/KG (275-295); POTASSIUM 3.77 mEq/L (3.5-5.1); SODIUM 142 mmol/L (136-145); TOTAL PROTEIN 6.8 gm/dL (6.4-8.2)
[2024-02-07 12:58] LABS: URINE WBC 1.2 uL (0.0-23.2)
== END 2024-02-07 15:46 | disposition home or self-care (01) ==
LOC: ER 10:02
PROVIDERS: General Practice
DX: R10.9 Unspecified abdominal pain (principal); Z91.012 Allergy to eggs; Z91.011 Allergy to milk products; Z88.0 Allergy status to penicillin; Z88.2 Allergy status to sulfonamides; Z88.6 Allergy status to analgesic agent; E11.9 Type 2 diabetes mellitus without complications; Z79.84 Long term (current) use of oral hypoglycemic drugs

== ENCOUNTER 2024-02-28 09:50 | Emergency (ER) | payer OTHER ==
[~2024-02-28] VITALS: Ht 154.9 cm; Wt 65.8 kg
[2024-02-28] MEDS ORDERED: RINGERS SOLUTION,LACTATED 1,000 ML IV SCH (11:30)
[2024-02-28 11:59] LABS: HEMATOCRIT 40.1 % (36.0-45.00); HEMOGLOBIN 13.5 g/dL (12.0-15.00); MEAN CELL VOLUME 89.9 fL (80.00-100.00); MEAN CORPUSCULAR HEMOGLOBIN 30.3 pg (27.00-32.0); MEAN CORPUSCULAR HGB CONC 33.7 g/dl (32.0-36.0); PLATELET COUNT 393 K/uL (150-450); RED BLOOD COUNT 4.45 M/uL (4.00-6.00); RED CELL DISTRIBUTION WIDTH 13.8 % (11.5-14.5)
[2024-02-28 13:56] LABS: ALBUMIN 3.7 gm/dL (3.4-5.0); BILIRUBIN TOTAL 0.24 mg/dL (0.3-1.2); CALCIUM 9.5 mg/dL (8.5-10.1); CREATININE SERUM 0.71 mg/dL (0.55-1.02); GFR 91.64; GLOBULINA 3.7 G/DL (2.4-3.5); POTASSIUM 4.77 mEq/L (3.5-5.1); TOTAL PROTEIN 7.4 gm/dL (6.4-8.2)
== END 2024-02-28 19:36 | disposition home or self-care (01) ==
LOC: ER 09:52
PROVIDERS: Emergency Medicine
DX: R00.2 Palpitations (principal); I95.89 Other hypotension; R07.9 Chest pain, unspecified; M32.8 Other forms of systemic lupus erythematosus; Z91.012 Allergy to eggs; Z91.018 Allergy to other foods; Z91.011 Allergy to milk products; Z88.2 Allergy status to sulfonamides; Z88.0 Allergy status to penicillin; Z91.013 Allergy to seafood; E11.9 Type 2 diabetes mellitus without complications; Z79.84 Long term (current) use of oral hypoglycemic drugs

== ENCOUNTER → 2024-03-20 | Emergency (ER) | payer OTHER ==
[~2024-03-20] VITALS: Ht 154.9 cm; Wt 63.0 kg
[2024-03-20 10:58] VITALS: O2SAT 97
[2024-03-20 12:03] LABS: HEMATOCRIT 37.9 % (36.0-45.00); HEMOGLOBIN 12.7 g/dL (12.0-15.00); MEAN CELL VOLUME 89.9 fL (80.00-100.00); MEAN CORPUSCULAR HEMOGLOBIN 30.2 pg (27.00-32.0); MEAN CORPUSCULAR HGB CONC 33.6 g/dl (32.0-36.0); PLATELET COUNT 415 K/uL (150-450); RED BLOOD COUNT 4.22 M/uL (4.00-6.00); RED CELL DISTRIBUTION WIDTH 13.8 % (11.5-14.5)
[2024-03-20 12:22] LABS: CALCIUM 9.3 mg/dL (8.5-10.1); CREATININE SERUM 0.67 mg/dL (0.55-1.02); GFR 97.99; POTASSIUM 4.22 mEq/L (3.5-5.1)
== END | disposition home or self-care (01) ==
LOC: ER 10:51
PROVIDERS: General Practice
DX: B34.9 Viral infection, unspecified (principal); Z20.822 Contact with and (suspected) exposure to COVID-19; E11.9 Type 2 diabetes mellitus without complications; Z79.84 Long term (current) use of oral hypoglycemic drugs; E03.9 Hypothyroidism, unspecified; Z87.09 Personal history of other diseases of the respiratory system; Z91.018 Allergy to other foods; Z88.0 Allergy status to penicillin; Z91.014 Allergy to mammalian meats

== ENCOUNTER 2024-12-05 13:05 | Emergency (ER) | payer OTHER ==
[~2024-12-05] VITALS: Ht 160 cm; Wt 54.4 kg
[2024-12-05 14:19] VITALS: BP 97/61; O2SAT 100
[2024-12-05] MEDS ORDERED: ZOLOFT50 MG PO (14:19)
[2024-12-05] MEDS ORDERED: ONDANSETRON HCL 2 MG/ML VIAL IV ONE (15:30)
[2024-12-05] MEDS ORDERED: 0.9 % SODIUM CHLORIDE 1,000 ML IV ONE (15:30)
[2024-12-05] MEDS ORDERED: FAMOTIDINE/PF 20 MG/2 ML VIAL IV ONE (15:30)
[2024-12-05 16:40] LABS: BASO % 0.4 % (0.1-1.2); EOS # 0.08 (0.04-0.54); EOS % 0.9 % (0.7-7.0); LYMPH # 2.57 (1.18-3.74); LYMPH % 27.5 % (19.3-53.1); MEAN PLATELET VOLUME 9.10 fl (9.4-12.4); MONO # 0.47 (0.24-0.82); MONO % 5.0 % (4.7-12.5); NEUT # 6.17 (1.56-6.13); NEUT % 66.0 % (34.0-71.1); RED CELL DISTRIBUTION WIDTH 12.8 % (11.6-14.4)
[2024-12-05 17:11] LABS: ALT/SGPT 22 U/L (12-78); AST/SGOT 11 U/L (15-37); BILIRUBIN TOTAL 0.42 mg/dL (0.3-1.2); BUN CREA RATIO 11 (7.0-25.0); CREATININE SERUM 0.53 mg/dL (0.55-1.02); GFR 127.76; GLOBULINA 3.8 G/DL (2.4-3.5); GLUCOSE FASTING 91 mg/dL (65-100); OSMOLALITY SERUM 273 MOSM/KG (275-295)
[2024-12-05 17:34] LABS: COVID-19 AG NEGATIVE (NEGATIVE)
[2024-12-05 18:53] LABS: URINE APPEARANCE Clear; URINE BILIRRUBIN Negative (NEGATIVE); URINE BLOOD Negative; URINE COLOR Yellow; URINE GLUCOSE Negative (NEGATIVE); URINE KETONE Negative (NEGATIVE); URINE LEUKOCYTE Negative; URINE NITRATE Negative; URINE PROTEIN Negative (NEGATIVE); URINE UROBILINOGEN 0.2 E.U./dl
[2024-12-05 18:58] LABS: URINE BACTERIA 143.9 uL (0.0-1933); URINE EPITHELIAL CELLS 7.5 uL (0.0-38.8); URINE RBC 4.5 uL (0.0-20.8); URINE WBC 5.0 uL (0.0-23.2)
[2024-12-05 19:09] LABS: URINE CAST 0.00 uL (0.0-1.40)
[2024-12-05] MEDS ORDERED: HYOSCYAMINE SULFATE 0.125 MG TAB.SUBL SL ONE (19:45)
[2024-12-05] MEDS ORDERED: PROBIOTIC1 EAC2 PO (19:46)
[2024-12-05] MEDS ORDERED: LEVSIN/SL0.125 MG SL (19:46)
== END 2024-12-05 20:32 | disposition home or self-care (01) ==
LOC: ER 13:05
DX: K52.89 Other specified noninfective gastroenteritis and colitis (principal); Z20.822 Contact with and (suspected) exposure to COVID-19; E11.9 Type 2 diabetes mellitus without complications; Z79.84 Long term (current) use of oral hypoglycemic drugs; E03.9 Hypothyroidism, unspecified; Z87.09 Personal history of other diseases of the respiratory system; Z91.018 Allergy to other foods; Z88.0 Allergy status to penicillin; Z91.014 Allergy to mammalian meats

== ENCOUNTER 2024-12-29 10:04 | Emergency (ER) | payer OTHER ==
[~2024-12-29] VITALS: Ht 154.9 cm; Wt 59.0 kg
[~2024-12-29 10:04] MED LIST changes: +PROBIOTIC1 EAC2 PO; +ZOLOFT50 MG PO
[2024-12-29] MEDS ORDERED: FAMOtidine 10 MG/ML (4ML VIAL) IV ONE (12:00)
[2024-12-29] MEDS ORDERED: ONDANSETRON HCL 2 MG/ML VIAL IV ONE (12:00)
[2024-12-29] MEDS ORDERED: DIPHENHYDRAMINE HCL 50 MG/ML VIAL 1ML IV ONE (12:00)
[2024-12-29] MEDS ORDERED: METHYLPREDNISOLONE SOD SUCC 125 MG VIAL IV ONE (12:00)
[2024-12-29] MEDS ORDERED: MORPHINE SULFATE 4 MG/ML CARTRIDGE IV PRN (12:00)
[2024-12-29 14:06] LABS: BASO % 0.3 % (0.1-1.2); EOS # 0.10 (0.04-0.54); EOS % 1.4 % (0.7-7.0); LYMPH # 2.10 (1.18-3.74); LYMPH % 28.5 % (19.3-53.1); MEAN PLATELET VOLUME 9.60 fl (9.4-12.4); MONO # 0.34 (0.24-0.82); MONO % 4.6 % (4.7-12.5); NEUT # 4.79 (1.56-6.13); NEUT % 65.1 % (34.0-71.1); RED CELL DISTRIBUTION WIDTH 12.4 % (11.6-14.4)
[2024-12-29 14:19] LABS: INR 1.02
[2024-12-29 14:25] LABS: URINE APPEARANCE Clear; URINE BILIRRUBIN Negative (NEGATIVE); URINE BLOOD Negative; URINE COLOR Yellow; URINE GLUCOSE Negative (NEGATIVE); URINE KETONE Negative (NEGATIVE); URINE LEUKOCYTE Negative; URINE NITRATE Negative; URINE PROTEIN Negative (NEGATIVE); URINE UROBILINOGEN 0.2 E.U./dl
[2024-12-29 14:28] LABS: URINE BACTERIA 52.7 uL (0.0-1933); URINE EPITHELIAL CELLS 9.2 uL (0.0-38.8)
[2024-12-29 14:29] LABS: URINE CAST 0.14 uL (0.0-1.40); URINE RBC 1.4 uL (0.0-20.8); URINE WBC 0 uL (0.0-23.2)
[2024-12-29 14:42] LABS: ALT/SGPT 21 U/L (12-78); AST/SGOT 13 U/L (15-37); BILIRUBIN TOTAL 0.25 mg/dL (0.3-1.2); BUN CREA RATIO 9 (7.0-25.0); CREATININE SERUM 0.58 mg/dL (0.55-1.02); GFR 115.14; GLOBULINA 3.6 G/DL (2.4-3.5); GLUCOSE FASTING 86 mg/dL (65-100); OSMOLALITY SERUM 280 MOSM/KG (275-295)
[2024-12-29 14:49] LABS: HCG QUANTITATIVE < 1 mUI/mL (1-3)
[2024-12-29] MEDS ORDERED: HYOSCYAMINE SULFATE 0.125 MG TAB.SUBL SL STA (16:27)
== END 2024-12-29 18:22 | disposition home or self-care (01) ==
LOC: ER 10:04
PROVIDERS: General Practice
DX: R10.9 Unspecified abdominal pain (principal); R11.2 Nausea with vomiting, unspecified; E03.8 Other specified hypothyroidism; E11.9 Type 2 diabetes mellitus without complications; Z79.84 Long term (current) use of oral hypoglycemic drugs; Z88.0 Allergy status to penicillin; Z91.018 Allergy to other foods
CPT/HCPCS: 36415; 74177; Q9965

== ENCOUNTER 2025-01-10 11:08 | Emergency (ER) | payer OTHER ==
[~2025-01-10] VITALS: Ht 154.9 cm; Wt 59.0 kg
[2025-01-10] MEDS ORDERED: DEXAMETHASONE SODIUM PHOSPHATE 4 MG/ML VIAL IM STA (12:42)
[2025-01-10] MEDS ORDERED: CETIRIZINE HCL 10 MG TABLET PO ONE (12:45)
[2025-01-10] MEDS ORDERED: GUAIFENESIN 200 MG/10 ML BLIST.PACK PO ONE ×2 (12:45→13:32)
[2025-01-10] MEDS ORDERED: AZITHROMYCIN 500 MG VIAL IV ONE ×2 (12:45→13:32)
[2025-01-10] MEDS ORDERED: DEXAMETHASONE SODIUM PHOSPHATE 4 MG/ML VIAL ONE (13:31)
[2025-01-10] MEDS ORDERED: CETIRIZINE HCL 5MG/5ML BLIST.PACK PO ONE (13:32)
[2025-01-10 14:06] LABS: BASO % 0.3 % (0.1-1.2); EOS # 0.07 (0.04-0.54); EOS % 0.6 % (0.7-7.0); LYMPH # 2.00 (1.18-3.74); LYMPH % 17.4 % (19.3-53.1); MEAN PLATELET VOLUME 9.50 fl (9.4-12.4); MONO # 0.42 (0.24-0.82); MONO % 3.6 % (4.7-12.5); NEUT # 8.96 (1.56-6.13); NEUT % 77.9 % (34.0-71.1); RED CELL DISTRIBUTION WIDTH 12.3 % (11.6-14.4)
[2025-01-10 14:24] LABS: COVID-19 AG NEGATIVE (NEGATIVE)
[2025-01-10] MEDS ORDERED: CLARITIN10 MG PO (14:48)
[2025-01-10] MEDS ORDERED: AZITHROMYCIN500 MG PO (14:48)
[2025-01-10] MEDS ORDERED: DELSYM30 MG/5 M1 PO (14:48)
== END 2025-01-10 16:22 | disposition home or self-care (01) ==
LOC: ER 11:09
PROVIDERS: General Practice
DX: J06.9 Acute upper respiratory infection, unspecified (principal); Z88.0 Allergy status to penicillin; Z88.2 Allergy status to sulfonamides; Z88.6 Allergy status to analgesic agent; Z91.013 Allergy to seafood; Z91.018 Allergy to other foods; Z91.0120 Allergy to eggs, unspecified; I49.8 Other specified cardiac arrhythmias; J45.909 Unspecified asthma, uncomplicated; F32.89 Other specified depressive episodes; E03.8 Other specified hypothyroidism; I73.89 Other specified peripheral vascular diseases; M32.8 Other forms of systemic lupus erythematosus; Z20.822 Contact with and (suspected) exposure to COVID-19

== ENCOUNTER 2025-01-17 14:26 | Emergency (ER) | payer OTHER ==
[~2025-01-17] VITALS: Ht 154.9 cm; Wt 59.0 kg
[~2025-01-17 14:26] MED LIST changes: +AZITHROMYCIN500 MG PO; +CLARITIN10 MG PO; +DELSYM30 MG/5 M1 PO
[2025-01-17] MEDS ORDERED: METHYLPREDNISOLONE SOD SUCC 40 MG VIAL IV ONE (18:15)
[2025-01-17] MEDS ORDERED: FAMOTIDINE/PF 20 MG/2 ML VIAL IV ONE (18:15)
[2025-01-17] MEDS ORDERED: GUAIFENESIN 200 MG/10 ML BLIST.PACK PO ONE ×2 (18:15→18:21)
[2025-01-17] MEDS ORDERED: 0.9 % SODIUM CHLORIDE 1,000 ML IV SCH (18:15)
[2025-01-17] MEDS ORDERED: IPRATROPIUM BROMIDE 0.5 MG/2.5 ML AMPUL.NEB IH ONE ×2 (18:15→18:59)
[2025-01-17] MEDS ORDERED: METHYLPREDNISOLONE SOD SUCC 40 MG VIAL ONE (18:21)
[2025-01-17] MEDS ORDERED: FAMOTIDINE/PF 20 MG/2 ML VIAL ONE (18:21)
[2025-01-17 19:46] LABS: BASO % 0.3 % (0.1-1.2); EOS # 0.07 (0.04-0.54); EOS % 0.7 % (0.7-7.0); LYMPH # 2.80 (1.18-3.74); LYMPH % 26.6 % (19.3-53.1); MEAN PLATELET VOLUME 9.30 fl (9.4-12.4); MONO # 0.51 (0.24-0.82); MONO % 4.8 % (4.7-12.5); NEUT # 7.10 (1.56-6.13); NEUT % 67.4 % (34.0-71.1); RED CELL DISTRIBUTION WIDTH 12.4 % (11.6-14.4)
[2025-01-17 19:51] LABS: ERYTHROCYTE SEDIMENTATION RATE 8 mm/hr (0-20)
[2025-01-17 20:06] LABS: COVID-19 AG NEGATIVE (NEGATIVE)
[2025-01-17 20:11] LABS: ALT/SGPT 28 U/L (12-78); AST/SGOT 9 U/L (15-37); BILIRUBIN TOTAL 0.24 mg/dL (0.3-1.2); BUN CREA RATIO 9 (7.0-25.0); CREATININE SERUM 0.70 mg/dL (0.55-1.02); GFR 92.68; GLOBULINA 4.2 G/DL (2.4-3.5); GLUCOSE FASTING 103 mg/dL (65-100); OSMOLALITY SERUM 277 MOSM/KG (275-295)
[2025-01-17] MEDS ORDERED: BENZONATATE200 M1 PO (21:02)
[2025-01-17] MEDS ORDERED: MUCINEX DM ER1 EAC1 PO (21:02)
== END 2025-01-17 22:31 | disposition home or self-care (01) ==
LOC: ER 14:27
PROVIDERS: Student in an Organized Health Care Education/Training Program
DX: J06.9 Acute upper respiratory infection, unspecified (principal); J18.9 Pneumonia, unspecified organism; Z88.6 Allergy status to analgesic agent; Z88.2 Allergy status to sulfonamides; Z88.0 Allergy status to penicillin; Z91.013 Allergy to seafood; Z91.0120 Allergy to eggs, unspecified; Z91.0110 Allergy to milk products, unspecified; Z91.018 Allergy to other foods; E86.0 Dehydration; B34.9 Viral infection, unspecified